=== PATIENT | female | born 1990 | race Caucasian/White ===

== ENCOUNTER 2017-04-10 06:36 | Inpatient (IN) | payer MEDICAID, SELFPAY ==
[2017-04-10] MEDS: Lactated Ringers 1,000 ML 50 ML IV ×2 (07:07→08:08)
[2017-04-10 07:28] VITALS: BMI 26.6
[2017-04-10 07:36] LABS: Absolute Lymphocyte Count 0.42 X10^3/ul (0.83-4.51); Absolute Neutrophil Count 20.7 X10^3/uL (2.0-7.7); Basophil# 0.02 X10^3/uL; Basophil% 0.1 % (0-1); Hematocrit 39.9 % (37-47); Hemoglobin 13.6 g/dl (12.0-15.0); Lymphocyte # 0.42 X10^3/ul (4.0); Lymphocyte % 1.9 % (19-41); Mean Corp Hgb Conc 34.1 g/gl (32-36); Mean Corpuscular Hgb 31.6 pg (27.0-32.0); Mean Corpuscular Volume 92.6 fL (81-99); Mean Platelet Vol. 10.9 fl (6.2-12.0); Monocyte# 0.76 X10^3/uL; Monocyte% 3.5 % (0-10); Neutrophil # 20.72 X10^3/uL (2.7-7.7); Neutrophil % 94.1 % (47-70); Platelet Count 219 K/mm3 (150-450); RBC Distribution Width CV 13.4 % (11.6-14.6); RBC Distribution Width SD 45.2 fl (35.1-43.9); Red Blood Count 4.31 M/mm3 (4.2-5.4)
[2017-04-10 07:37] LABS: POSITIVE COUNT NO; POSITIVE DIFFERENTIAL YES; POSITIVE MORPHOLOGY NO
[2017-04-10 07:38] LABS: Differential Indicated SCAN CRITERIA MET
[2017-04-10] MEDS: Nalbuphine 10 MG/ML Ampul IV (07:42)
[2017-04-10 07:43] LABS: ROM Internal Control Test YES-OK TO RESULT pt. (Internal QC)
[2017-04-10 07:45] LABS: ROM Patient Test POSITIVE (Negative)
[2017-04-10] MEDS: Ondansetron 4 MG/2 ML Vial IV (10:00)
[2017-04-10] MEDS: Oxytocin 30 units/NS 500 ml 30 UNITS/500 ML IV.SOLN 334 UNITS IV (12:36)
--- NOTE | 2017-04-10 13:00 | PCM.OB.VAG ---
(1) Arrested active labor, delivered, current hospitalization Status: Acute (2) Vacuum extraction, delivered, current hospitalization Status: Acute Vaginal Delivery Maternal Presentation: Active Labor 39w5d ega in active labor with SROM Amniotic Membrane Rupture Type: Spontaneous at home Rupture of Membrane time: 0300 Amniotic Fluid Description: Clear Final JB: 04/12/17 Final JB Source: US <20 weeks Gestational age: 39 Weeks and 5 Days Date of Procedure: 04/10/17 Pre-Operative Diagnosis: labor Post-Operative Diagnosis: same Surgery/ Procedure Performed: Vacuum Assisted Vaginal Delivery Anesthesiologist: Esau Acevedo Type of Anesthesia: Epidural Description of Procedure: Progressed to FD over 5 hours. During pushing efforts had repetitive decels into the 70s with eventual recovery to baseline by the next contraction. Pushed every other contraction for 30 minutes then decision was made to assist with vacuum device to speed delivery due to decels. The device was placed taking care to avoid the fontanelles. Over two contractions and two pulling efforts the baby's head was delivered to the perineum. Baby's head was delivered easily followed by the body. The nose and nares were suctioned. Delayed cord clamping was employed. The placenta was delivered intact with an eccentrically located 3VC. The uterus contracted well. Inspection revealed a right periurethral first degree tear and an very small posterior vaginal first degree tear. These were repaired with 3-0 Rapide suture. Presentation: KATHERINE Placental Delivery Description: Spontaneous Placenta Disposition: [facility] Percentage of Placenta Abruption: 0 Cord Vessel Description: 3 Vessels Cord Entanglement: None Drain: Rosario to straight drain Estimated Blood Loss: 300cc A gender: Male (1 minute): 9 (5 minute): 9 Episiotomy Description: None Laceration: Midline, Periurethral Extnsion/lac - right, Vaginal Extension/lac, 1st degree Medications given after delivery: IV Pitocin Complications: None
--- NOTE | 2017-04-10 13:08 | DCINST_ITS ---
Discharge Diet: No Restrictions Discharge Activity: Return to Normal Activity, May Drive, May Shower Return to work on:: 06/02/17 May shower in (days): 0 May resume sexual activity in: 6 weeks Call your doctor if your incision/area has: Sudden Increased Bleeding, Increased Pain/ Swelling, Foul Smelling Discharge Call your doctor if you observe: Fever of 101 or Higher, Inability to urinate, Inability to have a bowel movement, Using more than one pad per hour, Shortness of breath, Chest pain, Calf discomfort, Uncontrolled pain Cleanse incision/area with: Soap & Water Additional Instructions: If you experience any of the following, contact your healthcare provider. * Bleeding that soaks a pad every hour for 2 hours * Fever 100.4 or higher * Unrelieved incision or abdominal pain * Swelling, redness, discharge or bleeding from your incision or episiotomy site * Your incision begins to separate * Problems urinating (including inability to urinate or burning while urinating) . * Visual changes * Severe headache * Flu-like symptoms * Pain or redness in one of both of your breasts * Pain, warmth, tenderness or swelling in your legs, especially the calf area * Frequent nausea and vomiting * Symptoms of depression or anxiety If you experience any of the following, call 911 or go to the nearest Emergency Room. * Chest pain * Problems breathing * Seizure activity * Partial or complete paralysis of a body part, slurred speech, weakness or drooping of the face, or a sudden inability to walk or hold your balance Allergies/Adverse Reactions: Allergies Penicillins Allergy (Verified 04/10/17 07:18) Hives Medications to take at Discharge Vits [Prenatabs FA ] 1 tab PO DAILY 04/09/17 Acetaminophen [Tylenol Extra Strength] 500 mg PO Q8H 04/10/17 Ibuprofen [Motrin] 800 mg PO TID PRN PRN #30 tab 04/10/17 The following prescriptions were given: Ibuprofen [Motrin] 800 mg PO TID PRN PRN #30 tab PRN Reason: pain or cramping Please Follow Up With: Ayaan Herrera MD When: 6 weeks Proposed Discharge Date: 04/12/17
[2017-04-10] MEDS: Oxytocin 30 units/NS 500 ml 30 UNITS/500 ML IV.SOLN 167 UNITS IV (13:10)
[2017-04-10] MEDS: Ibuprofen 600 MG Tablet PO ×2 (13:57→21:55)
[2017-04-10 15:40] VITALS: BP 104/64; PULSE 92; RESP 16; TEMP 37.1
--- NOTE | 2017-04-10 16:31 | NURSING ---
1545 torres cath dc'ed; pericare done with fresh ice pack and tucks
[2017-04-10 20:00] VITALS: BP 115/67; PULSE 93; RESP 18; TEMP 37.4; O2SAT 99
[2017-04-10] MEDS: Senna/Docusate Sodium 1 Tablet PO (21:56)
[2017-04-11] VITALS (8 sets, daily range): BP systolic 100–118; BP diastolic 59–77; PULSE 68–110; RESP 16–18; TEMP 36.6–39.9; O2SAT 97–100
[2017-04-11] MEDS: oxyCODONE 5 MG Tablet PO ×4 (00:43→15:47)
[2017-04-11] MEDS: Ibuprofen 600 MG Tablet PO ×3 (04:43→20:17)
[2017-04-11 05:08] LABS: Hematocrit 32.8 % (37-47); Mean Corp Hgb Conc 33.5 g/gl (32-36); Mean Corpuscular Hgb 31.4 pg (27.0-32.0); Mean Corpuscular Volume 93.7 fL (81-99); Mean Platelet Vol. 10.4 fl (6.2-12.0); Platelet Count 185 K/mm3 (150-450); RBC Distribution Width CV 13.4 % (11.6-14.6); White Blood Count 15.7 K/mm3 (4.4-11.0)
[2017-04-11 05:09] LABS: Scan Indicated on CBC? Y/N NO
--- NOTE | 2017-04-11 08:11 | PCM.PN.OB ---
Patient Problems: Active and Suspected Problems Arrested active labor, delivered, current hospitalization (Acute) Vacuum extraction, delivered, current hospitalization (Acute) Subjective: Doing well. No specific complaints. Bleeding light. Objective: Afeb VSS Hgb stable - Physical Exam General: Alert, Oriented x3, Cooperative, No apparent distress Lungs: Clear to auscultation, Normal air movement Cardiovascular: Regular rate, Regular Rhythm Abdomen: Soft, Non Tender, Non-Distended, - - Fundus firm nontender Extremities: No edema Skin: No rashes Neurological: Neuro grossly intact Psych/Mental Status: Normal Affect Comment: Lochia light Vital Signs Temp Pulse Resp BP Pulse Ox 98.2 F 85 18 107/77 97 04/11/17 04:22 04/11/17 04:22 04/11/17 04:22 04/11/17 04:22 04/11/17 04:22 Oxygen Delivery Method Room Air Weight: 155 lb 10.342 oz Body Mass Index (BMI) 26.6 Intake and Output for Last 24 Hours 04/09/17 04/10/17 04/11/17 23:59 23:59 23:59 Intake Total 2984 / 2984 Output Total 650 / 650 Balance 2334 / 2334 Laboratory Tests Past 24 Hrs 04/10/17 04/10/17 04/11/17 07:07 07:07 04:50 WBC 15.7 H RBC 3.50 L Hgb 11.0 L Hct 32.8 L MCV 93.7 MCH 31.4 MCHC 33.5 RDW 13.4 RDW Differential 44.0 H Plt Count 185 MPV 10.4 Total Counted Not Reportable Blood Type A NEGATIVE Antibody Screen NEGATIVE Assessment/Plan Active and Suspected Problems Arrested active labor, delivered, current hospitalization (Acute) Vacuum extraction, delivered, current hospitalization (Acute) Doing well on PP day#1. Continue routine PP care.
[2017-04-11] MEDS: Senna/Docusate Sodium 1 Tablet PO (11:27)
[2017-04-11] MEDS: Prenatal Vits Tablet 1 TABLET PO (15:47)
[2017-04-11] MEDS: Acetaminophen 500 MG Tablet 1000 MG PO (17:57)
[2017-04-11] MEDS: Oseltamivir Phosphate 75 MG Capsule PO (21:56)
[2017-04-12 01:31] VITALS: BP 108/69; PULSE 90; RESP 18; TEMP 37
[2017-04-12] MEDS: Ibuprofen 600 MG Tablet PO (06:59)
[2017-04-12] MEDS: Senna/Docusate Sodium 1 Tablet PO (07:00)
[2017-04-12 07:45] VITALS: BP 117/79; PULSE 101; RESP 18; TEMP 37.9; O2SAT 95
[2017-04-12] MEDS: Acetaminophen 500 MG Tablet 1000 MG PO (08:56)
[2017-04-12] MEDS: Oseltamivir Phosphate 75 MG Capsule PO (08:57)
[2017-04-12] MEDS: Prenatal Vits Tablet 1 TABLET PO (08:57)
--- NOTE | 2017-04-12 10:59 | PCM.PN.OB ---
Patient Problems: Active and Suspected Problems Arrested active labor, delivered, current hospitalization (Acute) Vacuum extraction, delivered, current hospitalization (Acute) Subjective: Patient without complaints. Denies symptoms from positive influenza rapid test. Started on Tamiflu last p.m. Remains afebrile. Ready to go home. Not breast-feeding. - Physical Exam Vital Signs Afebrile, vital signs stable and present. Temp Pulse Resp BP Pulse Ox 100.3 F H 101 H 18 117/79 95 04/12/17 07:45 04/12/17 07:45 04/12/17 07:45 04/12/17 07:45 04/12/17 07:45 Oxygen Delivery Method Room Air Weight: 155 lb 10.342 oz Body Mass Index (BMI) 26.6 Intake and Output for Last 24 Hours 04/10/17 04/11/17 04/12/17 23:59 23:59 23:59 Intake Total 2984 / 2984 Output Total 650 / 650 Balance 2334 / 2334 Microbiology Past 72 Hours 04/11/17 18:16 Influenza Types A,B Direct FA (FADY) - Final Mucosa - Nose Influenzae A Assessment/Plan Active and Suspected Problems Arrested active labor, delivered, current hospitalization (Acute) Vacuum extraction, delivered, current hospitalization (Acute) Doing well. Will release to home with Tamiflu. To call with worsening flu symptoms. Follow-up in office in 6 weeks.
[2017-04-12 14:13] VITALS: BP 103/67; PULSE 79; RESP 16; TEMP 36.8; O2SAT 100
== END 2017-04-12 14:15 | disposition home or self-care (01) | DRG 372 ==
PROVIDERS: Admitting Provider Obstetrics & Gynecology; Visit Provider Obstetrics & Gynecology
DX: O76 Abnormality in fetal heart rate and rhythm complicating labor and delivery (principal); O90.89 Other complications of the puerperium, not elsewhere classified; O71.4 Obstetric high vaginal laceration alone; F17.210 Nicotine dependence, cigarettes, uncomplicated; O46.93 Antepartum hemorrhage, unspecified, third trimester; O62.1 Secondary uterine inertia; O71.82 Other specified trauma to perineum and vulva; O99.334 Smoking (tobacco) complicating childbirth; Z3A.39 39 weeks gestation of pregnancy; Z37.0 Single live birth; J11.1 Influenza due to unidentified influenza virus with other respiratory manifestations
CPT/HCPCS: 59025; 59050; 84112; 85025; 85027; 86850; 86900; 87804; 99218; J7120; G0378; J2405

== ENCOUNTER → 2017-09-09 10:50 | Outpatient (CLI) | payer MEDICAID, SELFPAY ==
--- NOTE | 2017-09-09 10:50 | DT_ITS ---
This patient was seen during an EMR downtime September 08, 2017 - September 15, 2017. This patient may have a combination of paper and electronic documentation or all paper documentation. All documentation is viewable within the e-chart portion of [facility] for each patient visit.
[2017-09-23 15:44] LABS: HPV Reflexed? NOT INDICATED
== END ==
PROVIDERS: Visit Provider Obstetrics & Gynecology
DX: Z12.4 Encounter for screening for malignant neoplasm of cervix (principal); Z12.72 Encounter for screening for malignant neoplasm of vagina
CPT/HCPCS: 88175; G0145

== ENCOUNTER 2018-01-10 08:48 | Observation (INO) | payer MEDICAID, SELFPAY ==
[2018-01-10 08:49] VITALS: BP 128/70; PULSE 86; RESP 16; TEMP 36.8; O2SAT 99; BMI 25.1
--- NOTE | 2018-01-10 09:12 | ED.VISSUMM ---
- ER Visit Summary Date of Service: 01/10/18 Chief Complaint: Nausea and vomiting History of Present Illness: The patient is a 27 F 3 days history of nausea and vomiting. No hematemesis. Too many to count. Worse with smell. Positive home yesterday. Last menstrual period was December 25. , [address] Herrera. No urine symptoms. No vaginal bleeding or abnormal discharge. Mild abdominal cramping due to vomiting. No diarrhea. Tobacco history. Denies any alcohol or illicit drug use. No fever, chills, sweats. Physical Examination: General: Alert and oriented ?3, no acute distress HEENT: Normocephalic, atraumatic. Mild dry mucosa membranes Neck: supple, nontender. Cardiovascular: Regular rate and rhythm, no murmurs Respiratory: Normal breath sounds, symmetric, no distress Abdomen: Soft, nontender, nondistended, negative McBurney's or Quintana's. Extremities: Nontender, no edema, pulses intact ?4 Neuro: no focal neurological deficits. Test Results: BMP potassium 3.5. Creatinine 0.85. UA leukocytes 100, ketones 150, WBCs 5-10, bacteria 2+. Urine culture pending. HCG 48,000. Pelvic ultrasound 6 weeks 4-day intrauterine gestation heart tones 115, small subchorionic hemorrhage. Emergency Department Course and Treatment: Patient mild dry mucosa membranes 3 days of vomiting. Order for aggressive fluids, Phenergan was ordered. Initially improved, labs were stable, hCG was 4800. With abdominal cramping, I did send for ultrasound. During the time recurrent nausea and vomiting is given Reglan additional Phenergan. Results of ultrasound notes for 6 weeks 4-day gestation small subchorionic hemorrhage heart tones 115. She denies any vaginal bleeding. Reevaluation after ultrasound, states she still nauseated. 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 Herrera, will admit for observations for bowel rest and fluid hydration. Discussed urine findings with out symptoms with cultures in the lab and pending. Will hold antibiotics at this time. Treatment Plan: [] Disposition: Admission Impression: 1. Hyperemesis gravidarum 2. First trimester This note was generated with [employer] software. It may contain incorrect words, spelling, and punctuation that were not noted in review of the chart prior to signing ED Disposition - Plan for ED Patient: Disposition: Acute Care [facility] Chief Complaint: Nausea/Vomiting Diagnosis: Hyperemesis gravidarum, First trimester Referrals: NOT,DEFINED [NON-STAFF] -
[2018-01-10] MEDS: proMETHazine 25 MG/ML Syringe 6.25 MG IV ×2 (09:17→11:46)
[2018-01-10] MEDS: 0.9% Normal Saline 1,000 ML 1000 ML IV (09:18)
[2018-01-10 09:38] LABS: Anion Gap 8 (5-15); BUN 11 mg/dL (7-18); BUN/Creat Ratio 13.6 RATIO (10-20); Calcium,Total 9.2 mg/dL (8.5-10.1); Chloride 100 mmol/L (98-107); Creatinine, Serum 0.81 mg/dL (0.55-1.02); EST Glomerular Filtration Rate 89 mL/min (>60); Est Glom Filt Rate - Afr Amer 108 mL/min (>60); Estimated Creatinine Clearance 85.54 ml/min; Glucose 122 mg/dL (74-106); Potassium 3.5 mmol/L (3.5-5.1); Sodium Level 135 mmol/L (136-145)
--- NOTE | 2018-01-10 10:14 | US_ITS ---
STUDY: FIRST TRIMESTER OBSTETRICAL ULTRASOUND REASON FOR EXAM: Female, 27 years old. Nausea and vomiting for 3 days. Headache and mid abdominal pain. . LMP: Approximately 12/25/2017. GA (LMP) 2 week 2 day with JB 10/01/2018. TECHNIQUE: Transvaginal PRIOR ULTRASOUND: None. FINDINGS: There is a single live intrauterine gestation with cardiac rate 115 bpm. Morphologically normal gestational sac with mean sac diameter 1.93 cm correlating with 6 week 6 day gestation. 3.5 mm-year-old sac present. It is too early for assessment of placental development or amniotic fluid index. The crown-rump length is 0.42 cm correlating with 6 week 1 day gestation. AUA 6 week 4 day, JB (AUA) 09/01/2018. The uterus measures 7.0 x 6.8 x 4.3 cm with normal myometrial echotexture, retroverted position. The cervix is closed. Small subchorionic lucency measuring about 9 x 7 x 4 mm is suspicious for a small subchorionic hemorrhage. The right ovary measures 4.2 x 3.6 x 2.6 cm, normal echotexture, appropriate Doppler vascular flow, small physiologic follicles and a dominant 2.5 cm follicle likely representing the corpus luteum cyst of . There is no right adnexal mass, or suspicious cyst. Minimal right adnexal fluid. Left ovary measures 3.0 x 1.6 x 1.7 cm with normal echotexture, small physiologic follicles and normal Doppler vascular flow. There is no left adnexal mass, suspicious cyst or free fluid. Minimal cul-de-sac free fluid. US/Transvaginal w/Preg US IMPRESSION: Suspected tiny subchronic hemorrhage. Single live intrauterine gestation, measurements consistent with 6 week 4 day gestation. Electronically Signed: Vito Mendoza, at 12:14 EDT Tel , Service support ,
[2018-01-10 10:19] LABS: Color, Urine Yellow (Yellow); Glucose, Dipstick Normal (Normal); Leukocyte Esterase-Dipstick 100 /ul (Negative); Nitrite-Dipstick Negative (Negative); Occult Blood-Urine Negative /ul (Negative); Protein-Dipstick 100 mg/dl (Negative); Specific Gravity, Urine 1.025 (1.002-1.030); Urine Clarity Sl. Cloudy (Clear); Urine Urobilinogen 8 mg/dl (Normal)
[2018-01-10] MEDS: 0.9% Normal Saline 1,000 ML 250 ML IV (10:20)
[2018-01-10 10:21] LABS: Ketone-Dipstick 150 mg/dl (Negative); Urine Bilirubin Dipstick 1 mg/dL (Negative)
[2018-01-10 10:26] LABS: Bacteria 2+ /hpf (None Seen); Mucous, Urine 2+ /hpf (<or=2+); Red Blood Cells-Urine 0-5 SEEN /hpf (0-5); Squamous Epithelial Cells - UA 0-5 SEEN /hpf (5-10); White Blood Cells 5-10 SEEN /hpf (0-5)
[2018-01-10] MEDS: Metoclopramide 10 MG/2 ML Vial 5 MG IV (10:40)
[2018-01-10 11:37] VITALS: BP 101/60; PULSE 80; RESP 18; O2SAT 97
--- NOTE | 2018-01-10 12:51 | NURSING ---
HYPERMESIS GRAVIDARUM 1ST TRMESTER PREG SEALS 302
[2018-01-10 13:04] VITALS: BMI 25.6
[2018-01-10 13:18] VITALS: BP 122/81; PULSE 84; RESP 16; TEMP 37.1; O2SAT 98
[2018-01-10] MEDS: Lactated Ringers 1,000 ML 150 ML IV ×2 (14:43→20:26)
[2018-01-10] MEDS: Ondansetron 4 MG/2 ML Vial IV ×2 (14:49→20:19)
[2018-01-10 14:51] VITALS: BP 119/88; PULSE 70; RESP 18; TEMP 36.7; O2SAT 100
[2018-01-10] MEDS: proMETHazine 25 MG/ML Syringe 12.5 MG IV ×2 (16:35→21:51)
--- NOTE | 2018-01-10 20:17 | NURSING ---
Spoke with Dr. Soto regarding pts c/o severe nausea and not due for any meds. Order recieved,Ok to give Zofran now.
--- NOTE | 2018-01-10 21:34 | NURSING ---
Spoke with Dr. Herrera and ok to give phenergan early, does not want to add Reglan at this time. Also states ok for pt to shower.
[2018-01-10 21:35] VITALS: BP 122/80; PULSE 54; RESP 16; TEMP 36.9; O2SAT 100
[2018-01-11 00:08] LABS: Bacteria 0 SEEN /hpf (None Seen); Color, Urine Yellow (Yellow); Glucose, Dipstick Normal (Normal); Ketone-Dipstick 50 mg/dl (Negative); Leukocyte Esterase-Dipstick 25 /ul (Negative); Mucous, Urine 0 SEEN /hpf (<or=2+); Nitrite-Dipstick Negative (Negative); Occult Blood-Urine 150 /ul (Negative); Protein-Dipstick Negative (Negative); Specific Gravity, Urine 1.015 (1.002-1.030); Urine Bilirubin Dipstick Negative (Negative); Urine Clarity Clear (Clear); Urine Urobilinogen 4 mg/dl (Normal)
[2018-01-11 00:20] LABS: Red Blood Cells-Urine 5-10 SEEN /hpf (0-5); Squamous Epithelial Cells - UA 5-10 SEEN /hpf (5-10); White Blood Cells 5-10 SEEN /hpf (0-5)
[2018-01-11 02:18] VITALS: BP 127/81; PULSE 76; RESP 18; TEMP 37.1; O2SAT 97
[2018-01-11] MEDS: Ondansetron 4 MG/2 ML Vial IV ×3 (02:20→18:27)
[2018-01-11] MEDS: Lactated Ringers 1,000 ML 150 ML IV ×2 (02:25→08:17)
[2018-01-11] MEDS: 0.9% NaCl Peripheral Flush Adult/Peds IV ×4 (05:45→17:28)
[2018-01-11] MEDS: proMETHazine 25 MG/ML Syringe 12.5 MG IV ×3 (05:46→17:27)
[2018-01-11 06:46] LABS: Absolute Lymphocyte Count 1.07 X10^3/ul (0.83-4.51); Absolute Neutrophil Count 9.8 X10^3/uL (2.0-7.7); Basophil# 0.02 X10^3/uL; Basophil% 0.2 % (0-1); Eosinophil# 0.01 X10^3/uL; Eosinophils% 0.1 % (0-5); Hematocrit 33.8 % (37-47); Hemoglobin 11.7 g/dl (12.0-15.0); Lymphocyte # 1.07 X10^3/ul (4.0); Mean Corp Hgb Conc 34.6 g/gl (32-36); Mean Corpuscular Hgb 31.5 pg (27.0-32.0); Mean Corpuscular Volume 90.9 fL (81-99); Mean Platelet Vol. 10.5 fl (6.2-12.0); Monocyte# 1.03 X10^3/uL; Monocyte% 8.6 % (0-10); Neutrophil # 9.79 X10^3/uL (2.7-7.7); Neutrophil % 81.8 % (47-70); Platelet Count 150 K/mm3 (150-450); RBC Distribution Width CV 13.5 % (11.6-14.6); RBC Distribution Width SD 43.8 fl (35.1-43.9); Red Blood Count 3.72 M/mm3 (4.2-5.4)
[2018-01-11 06:58] LABS: POSITIVE COUNT NO; POSITIVE DIFFERENTIAL NO; POSITIVE MORPHOLOGY NO
[2018-01-11 07:11] LABS: Anion Gap 8 (5-15); BUN 6 mg/dL (7-18); BUN/Creat Ratio 10.5 RATIO (10-20); Calcium,Total 8.4 mg/dL (8.5-10.1); Chloride 104 mmol/L (98-107); Creatinine, Serum 0.57 mg/dL (0.55-1.02); EST Glomerular Filtration Rate 133 mL/min (>60); Est Glom Filt Rate - Afr Amer 161 mL/min (>60); Estimated Creatinine Clearance 121.55 ml/min; Glucose 95 mg/dL (74-106); Potassium 3.8 mmol/L (3.5-5.1); Sodium Level 137 mmol/L (136-145)
--- NOTE | 2018-01-11 08:30 | PCM.HP.STD ---
Problem List (1) Hyperemesis gravidarum Status: Chronic (2) First trimester Status: Acute History of Present Illness Date of Admission: 01/10/18 Chief Complaint: Nausea and vomitting The patient is a 27 year old F [ with LMP in December with nausea and vomiting and inability to tolerate any PO over the past 2 days. 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 Denies: Anorexia, Chills, Fever, Night Sweats Cardiovascular: Denies: Chest Pain, Chest Pressure, Edema, Light Headedness Respiratory: Denies: Shortness of Breath Gastrointestinal: Reports: Nausea, Vomiting. Denies: Abdominal Pain, Constipation, Diarrhea, Hematemesis Genitourinary: Denies: Dysuria, Frequency, Hematuria Psychiatric: Denies: Anxiety, Depression Hematologic/ Lymphatic: Denies: Anemia VTE Information - Inpt Only VTE Present on Admission: No VTE Mechan Device Prophylaxis: None VTE Pharm Prophylaxis ordered?: No Reason prophylaxis not ordered:: Treatment Not Indicated Patient Problems: Active and Suspected Problems First trimester (Acute) Subjective: Some continued nausea but feels better than yesterday. Objective: Afeb VSS - Physical Exam General: Alert, Oriented x3, Cooperative, No apparent distress Lungs: Clear to auscultation, Normal air movement Cardiovascular: Regular rate, Regular Rhythm Abdomen: Soft, Non Tender, Non-Distended Extremities: No edema Skin: No rashes Neurological: Neuro grossly intact Psych/Mental Status: Normal Affect Comment: No vaginal bleeding. Vital Signs Temp Pulse Resp BP Pulse Ox 98.7 F 76 18 127/81 H 97 01/11/18 02:18 01/11/18 02:18 01/11/18 02:18 01/11/18 02:18 01/11/18 02:18 Oxygen Delivery Method Room Air Weight: 144 lb 9.972 oz Body Mass Index (BMI) 25.6 Intake and Output for Last 24 Hours 10/08/2201/10/18 01/11/18 23:59 23:59 23:59 Intake Total 120 / 120 2386 / 2386 Output Total 100 / 100 Balance 2385 / 2386 Laboratory Tests Past 24 Hrs 01/10/18 01/10/18 01/10/18 09:11 09:11 10:14 WBC RBC Hgb Hct MCV MCH MCHC RDW RDW Differential Plt Count MPV Immature Gran % (Auto) Neut % (Auto) Lymph % (Auto) [place] % (Auto) Eos % (Auto) Baso % (Auto) Absolute Neuts (auto) Absolute Lymphs (auto) Total Counted Sodium 135 L Potassium 3.5 Chloride 100 Carbon Dioxide 27.0 Anion Gap 8 BUN 11 Creatinine 0.81 Estim Creat Clear Calc 85.54 Est GFR (MDRD) Af Amer 108 Est GFR (MDRD) Non-Af 89 BUN/Creatinine Ratio 13.6 Glucose 122 H Calcium 9.2 HCG, Quant 44628 H Urine Color Yellow Urine Clarity Sl. Cloudy Urine pH 6.0 Ur Specific [place] 1.025 Urine Protein 100 H Urine Glucose (UA) Normal Urine Ketones 150 H Urine Occult Blood Negative Urine Nitrite Negative Urine Bilirubin 1 H Urine Urobilinogen 8 H Ur Leukocyte Esterase 100 H Urine RBC 0-5 SEEN Urine WBC 5-10 SEEN Ur Squamous Epith Cells 0-5 SEEN Urine Bacteria 2+ Urine Mucus 2+ 01/10/18 01/11/18 01/11/18 21:55 06:09 06:09 WBC 12.0 H RBC 3.72 L Hgb 11.7 L Hct 33.8 L MCV 90.9 MCH 31.5 MCHC 34.6 RDW 13.5 RDW Differential 43.8 Plt Count 150 MPV 10.5 Immature Gran % (Auto) 0.300 Neut % (Auto) 81.8 H Lymph % (Auto) 9.0 L [place] % (Auto) 8.6 Eos % (Auto) 0.1 Baso % (Auto) 0.2 Absolute Neuts (auto) 9.8 H Absolute Lymphs (auto) 1.07 Total Counted Not Reportable Sodium 137 Potassium 3.8 Chloride 104 Carbon Dioxide 25.0 Anion Gap 8 BUN 6 L Creatinine 0.57 Estim Creat Clear Calc 121.55 Est GFR (MDRD) Af Amer 161 Est GFR (MDRD) Non-Af 133 BUN/Creatinine Ratio 10.5 Glucose 95 Calcium 8.4 L HCG, Quant Urine Color Yellow Urine Clarity Clear Urine pH 8.0 Ur Specific [place] 1.015 Urine Protein Negative Urine Glucose (UA) Normal Urine Ketones 50 H Urine Occult Blood 150 H Urine Nitrite Negative Urine Bilirubin Negative Urine Urobilinogen 4 H Ur Leukocyte Esterase 25 H Urine RBC 5-10 SEEN Urine WBC 5-10 SEEN Ur Squamous Epith Cells 5-10 SEEN Urine Bacteria 0 SEEN Urine Mucus 0 SEEN Assessment/Plan All Active Problems First trimester (Acute) Vacuum extraction, delivered, current hospitalization (Acute) Arrested active labor, delivered, current hospitalization (Acute) Hyperemesis gravidum. Early first trimester . Labs reveal better hydration today but still with some ketones. Electrolytes normal. Will give trial of PO today. If able to tolerate will discharge home with PO antiemetics.
[2018-01-11 08:32] VITALS: BP 130/83; PULSE 62; RESP 16; TEMP 36.8; O2SAT 99
--- NOTE | 2018-01-11 08:35 | HP.PCM_ITS ---
Problem List (1) Hyperemesis gravidarum Status: Chronic (2) First trimester Status: Acute History of Present Illness Date of Admission: 01/10/18 Chief Complaint: Nausea and vomitting The patient is a 27 year old F [ with LMP in December with nausea and vomiting and inability to tolerate any PO over the past 2 days. 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 Denies: Anorexia, Chills, Fever, Night Sweats Cardiovascular: Denies: Chest Pain, Chest Pressure, Edema, Light Headedness Respiratory: Denies: Shortness of Breath Gastrointestinal: Reports: Nausea, Vomiting. Denies: Abdominal Pain, Constipation, Diarrhea, Hematemesis Genitourinary: Denies: Dysuria, Frequency, Hematuria Psychiatric: Denies: Anxiety, Depression Hematologic/ Lymphatic: Denies: Anemia VTE Information - Inpt Only VTE Present on Admission: No VTE Mechan Device Prophylaxis: None VTE Pharm Prophylaxis ordered?: No Reason prophylaxis not ordered:: Treatment Not Indicated Patient Problems: Active and Suspected Problems First trimester (Acute) Subjective: Some continued nausea but feels better than yesterday. Objective: Afeb VSS - Physical Exam General: Alert, Oriented x3, Cooperative, No apparent distress Lungs: Clear to auscultation, Normal air movement Cardiovascular: Regular rate, Regular Rhythm Abdomen: Soft, Non Tender, Non-Distended Extremities: No edema Skin: No rashes Neurological: Neuro grossly intact Psych/Mental Status: Normal Affect Comment: No vaginal bleeding. Vital Signs Temp Pulse Resp BP Pulse Ox 98.7 F 76 18 127/81 H 97 01/11/18 02:18 01/11/18 02:18 01/11/18 02:18 01/11/18 02:18 01/11/18 02:18 Oxygen Delivery Method Room Air Weight: 144 lb 9.972 oz Body Mass Index (BMI) 25.6 Intake and Output for Last 24 Hours 10/08/2201/10/18 01/11/18 23:59 23:59 23:59 Intake Total 120 / 120 2386 / 2386 Output Total 100 / 100 Balance 2385 / 2386 Laboratory Tests Past 24 Hrs 01/10/18 01/10/18 01/10/18 09:11 09:11 10:14 WBC RBC Hgb Hct MCV MCH MCHC RDW RDW Differential Plt Count MPV Immature Gran % (Auto) Neut % (Auto) Lymph % (Auto) [place] % (Auto) Eos % (Auto) Baso % (Auto) Absolute Neuts (auto) Absolute Lymphs (auto) Total Counted Sodium 135 L Potassium 3.5 Chloride 100 Carbon Dioxide 27.0 Anion Gap 8 BUN 11 Creatinine 0.81 Estim Creat Clear Calc 85.54 Est GFR (MDRD) Af Amer 108 Est GFR (MDRD) Non-Af 89 BUN/Creatinine Ratio 13.6 Glucose 122 H Calcium 9.2 HCG, Quant 25927 H Urine Color Yellow Urine Clarity Sl. Cloudy Urine pH 6.0 Ur Specific [place] 1.025 Urine Protein 100 H Urine Glucose (UA) Normal Urine Ketones 150 H Urine Occult Blood Negative Urine Nitrite Negative Urine Bilirubin 1 H Urine Urobilinogen 8 H Ur Leukocyte Esterase 100 H Urine RBC 0-5 SEEN Urine WBC 5-10 SEEN Ur Squamous Epith Cells 0-5 SEEN Urine Bacteria 2+ Urine Mucus 2+ 01/10/18 01/11/18 01/11/18 21:55 06:09 06:09 WBC 12.0 H RBC 3.72 L Hgb 11.7 L Hct 33.8 L MCV 90.9 MCH 31.5 MCHC 34.6 RDW 13.5 RDW Differential 43.8 Plt Count 150 MPV 10.5 Immature Gran % (Auto) 0.300 Neut % (Auto) 81.8 H Lymph % (Auto) 9.0 L [place] % (Auto) 8.6 Eos % (Auto) 0.1 Baso % (Auto) 0.2 Absolute Neuts (auto) 9.8 H Absolute Lymphs (auto) 1.07 Total Counted Not Reportable Sodium 137 Potassium 3.8 Chloride 104 Carbon Dioxide 25.0 Anion Gap 8 BUN 6 L Creatinine 0.57 Estim Creat Clear Calc 121.55 Est GFR (MDRD) Af Amer 161 Est GFR (MDRD) Non-Af 133 BUN/Creatinine Ratio 10.5 Glucose 95 Calcium 8.4 L HCG, Quant Urine Color Yellow Urine Clarity Clear Urine pH 8.0 Ur Specific [place] 1.015 Urine Protein Negative Urine Glucose (UA) Normal Urine Ketones 50 H Urine Occult Blood 150 H Urine Nitrite Negative Urine Bilirubin Negative Urine Urobilinogen 4 H Ur Leukocyte Esterase 25 H Urine RBC 5-10 SEEN Urine WBC 5-10 SEEN Ur Squamous Epith Cells 5-10 SEEN Urine Bacteria 0 SEEN Urine Mucus 0 SEEN Assessment/Plan All Active Problems First trimester (Acute) Vacuum extraction, delivered, current hospitalization (Acute) Arrested active labor, delivered, current hospitalization (Acute) Hyperemesis gravidum. Early first trimester . Labs reveal better hydration today but still with some ketones. Electrolytes normal. Will give trial of PO today. If able to tolerate will discharge home with PO antiemetics.
--- NOTE | 2018-01-11 08:41 | NURSING ---
Pt sleeping but awakened by Dr. Herrera. This nurse in room to perform Vital Signs and Assessment. Pt very irritable while this nurse performing Assessment. I just want to go to sleep. This nurse informed her that it would only take a few minutes. Offered pt some fresh liquids for her, pt refused.
--- NOTE | 2018-01-11 08:44 | DCINST_ITS ---
- Discharge Diagnoses Current Active Problems: Current Active and Chronic Problems Hyperemesis gravidarum (Chronic) First trimester (Acute) You will use the following diet at home:: No restrictions - bland Your food should be the consistency of: Regular Discharge Activity: Return to Normal Activity, May Drive, May Shower, May Take a Tub Bath Return to work on:: 01/14/18 May shower in (days): 0 May resume sexual activity in: No Restrictions Call your doctor if you observe: Fever of 101 or Higher, Inability to urinate, Inability to have a bowel movement, Using more than one pad per hour, Shortness of breath, Chest pain, Calf discomfort, Uncontrolled pain, - - Inability to tolerate any fluids for more than 24 hours Allergies/Adverse Reactions: Allergies Penicillins Allergy (Verified 01/10/18 08:50) Hives Medications to take at Discharge Ondansetron [Zofran Odt] 4 mg PO Q6H PRN PRN #30 tab.rapdis 01/11/18 proMETHazine tablet [Phenergan tablet] 25 mg PO Q6H PRN PRN #30 tab 01/11/18 The following prescriptions were given: Ondansetron [Zofran Odt] 4 mg PO Q6H PRN PRN #30 tab.rapdis PRN Reason: nausea or vomiting proMETHazine tablet [Phenergan tablet] 25 mg PO Q6H PRN PRN #30 tab PRN Reason: nausea or vomiting Primary Care Physician: NOT,DEFINED [NON-STAFF] - Test Results: Test results from this visit will be discussed in further detail at your follow- up appointment, if applicable. Please Follow Up With: Ayaan Herrera MD When: within one to two weeks Proposed Discharge Date: 01/11/18
[2018-01-11] MEDS: Dextrose 5%-Lactated Ringers 1,000 ML 250 ML IV ×2 (10:00→14:48)
[2018-01-11 15:02] VITALS: BP 130/78; PULSE 53; RESP 18; TEMP 36.9; O2SAT 98
--- NOTE | 2018-01-11 17:30 | NURSING ---
Pt has not ordered dinner yet. Encouraged. I want to go home. This nurse was going to get discharge paper work and pt stated, Can you wait until my mom gets back because I don't know whats going on. pt not motivated to do anything besides sleep.
== END 2018-01-11 18:41 | disposition home or self-care (01) ==
LOC: ED 12:33 → MS3 12:43
PROVIDERS: Admitting Provider Obstetrics & Gynecology; Emergency Provider Emergency Medicine; Visit Provider Obstetrics & Gynecology
DX: O21.0 Mild hyperemesis gravidarum (principal); Z3A.01 Less than 8 weeks gestation of pregnancy; O99.334 Smoking (tobacco) complicating childbirth; F17.200 Nicotine dependence, unspecified, uncomplicated
CPT/HCPCS: 36415; 76817; 80048; 81001; 84702; 85025; 87086; 87088; 96361; 96374; 96375; 96376; 99218; 99282; 99406; J7030; J7120; A4216; G0378; J2405; J3490

== ENCOUNTER → 2018-02-03 13:35 | Outpatient (CLI) | payer MEDICAID, SELFPAY ==
[2018-02-03 18:11] LABS: Chlamydia Trachomatis by PCR Negative (Negative); Neisserai gonorrhoeae by PCR Negative (Negative); Probe Check PASS; Sample Adequacy Control PASS; Specimen Processing Control PASS
== END ==
PROVIDERS: Visit Provider Obstetrics & Gynecology
DX: Z11.3 Encounter for screening for infections with a predominantly sexual mode of transmission (principal)
CPT/HCPCS: 87491; 87591

== ENCOUNTER → 2018-02-19 10:34 | Outpatient (CLI) | payer MEDICAID, SELFPAY ==
[2018-02-19 10:45] LABS: Absolute Lymphocyte Count 1.77 X10^3/ul (0.83-4.51); Absolute Neutrophil Count 9.3 X10^3/uL (2.0-7.7); Basophil# 0.03 X10^3/uL; Basophil% 0.2 % (0-1); Color, Urine Yellow (Yellow); Eosinophil# 0.14 X10^3/uL; Eosinophils% 1.1 % (0-5); Glucose, Dipstick Normal (Normal); Hematocrit 41.2 % (37-47); Hemoglobin 14.2 g/dl (12.0-15.0); Ketone-Dipstick Negative (Negative); Leukocyte Esterase-Dipstick Negative /ul (Negative); Lymphocyte # 1.77 X10^3/ul (4.0); Lymphocyte % 14.5 % (19-41); Mean Corp Hgb Conc 34.5 g/gl (32-36); Mean Corpuscular Hgb 31.5 pg (27.0-32.0); Mean Corpuscular Volume 91.4 fL (81-99); Monocyte# 0.92 X10^3/uL; Monocyte% 7.5 % (0-10); Neutrophil # 9.29 X10^3/uL (2.7-7.7); Neutrophil % 76.2 % (47-70); Nitrite-Dipstick Negative (Negative); Occult Blood-Urine Negative /ul (Negative); Platelet Count 218 K/mm3 (150-450); Protein-Dipstick Negative (Negative); RBC Distribution Width CV 13.4 % (11.6-14.6); RBC Distribution Width SD 44.3 fl (35.1-43.9); Red Blood Count 4.51 M/mm3 (4.2-5.4); Urine Bilirubin Dipstick Negative (Negative); Urine Clarity Clear (Clear); Urine Urobilinogen Normal (Normal); White Blood Count 12.2 K/mm3 (4.4-11.0)
[2018-02-19 10:46] LABS: POSITIVE COUNT NO; POSITIVE DIFFERENTIAL NO; POSITIVE MORPHOLOGY NO
[2018-02-19 10:49] LABS: COTININE Drug Screen Positive (<200 ng/mL)
[2018-02-19 10:59] LABS: Amphetamine Urine VISTA NEGATIVE (<1000 ng/mL); Barbiturate Urine VISTA NEGATIVE (< 200 ng/mL); Benzodiazepine Urine VISTA NEGATIVE (< 200 ng/mL); Cocaine Urine VISTA NEGATIVE (< 300 ng/mL); Ecstacy Urine VISTA NEGATIVE (< 500 ng/mL); Methadone Urine VISTA NEGATIVE (< 300 ng/mL); PCP Urine VISTA NEGATIVE (< 25 ng/mL); THC Urine VISTA POSITIVE (< 50 ng/mL); Vista UDS pH Range 7
[2018-02-19 11:19] LABS: Thyroid Stim Hormone (TSH) 1.41 uIU/mL (0.358-3.74)
[2018-02-19 12:00] LABS: HIV - WCH Non-Reactive (Nonreactive); Rubella IgG 70.3 IU/mL
[2018-02-20 01:35] LABS: Prenatal RPR NONREACTIVE (NONREACTIVE)
[2018-02-22 11:29] LABS: HEPATITIS B SURFACE AG Negative (Negative); Hep C Antibodies <0.1 s/co ratio (0.0-0.9)
== END ==
PROVIDERS: Visit Provider Obstetrics & Gynecology
DX: Z34.81 Encounter for supervision of other normal pregnancy, first trimester (principal)
CPT/HCPCS: 36415; 80307; 81002; 84443; 85025; 86703; 86762; 86803; 87340

== ENCOUNTER → 2018-06-25 10:31 | Outpatient (CLI) | payer MEDICAID, SELFPAY ==
[2018-06-25 13:52] LABS: Mean Corp Hgb Conc 33.3 g/gl (32-36); Mean Corpuscular Hgb 32.1 pg (27.0-32.0); Mean Corpuscular Volume 96.3 fL (81-99); Mean Platelet Vol. 10.2 fl (6.2-12.0); Platelet Count 213 K/mm3 (150-450); RBC Distribution Width CV 12.4 % (11.6-14.6); RBC Distribution Width SD 41.9 fl (35.1-43.9); Red Blood Count 3.74 M/mm3 (4.2-5.4); White Blood Count 12.6 K/mm3 (4.4-11.0)
[2018-06-25 13:53] LABS: Scan Indicated on CBC? Y/N NO
[2018-06-25 13:55] LABS: Glucose Challenge Gest 1H 50g 84 mg/dL (70-140)
== END ==
PROVIDERS: Visit Provider Obstetrics & Gynecology
DX: Z34.83 Encounter for supervision of other normal pregnancy, third trimester (principal)
CPT/HCPCS: 82950; 85027; 86850

== ENCOUNTER → 2018-08-13 | Outpatient (CLI) | payer MEDICAID, SELFPAY ==
[2018-01-10 13:04] VITALS: BMI 25.6
== END | disposition home or self-care (01) ==
LOC: LABSPEC 13:55
PROVIDERS: Visit Provider Obstetrics & Gynecology
DX: Z36.85 Encounter for antenatal screening for Streptococcus B (principal)
CPT/HCPCS: 87077; 87081; 87186

== ENCOUNTER 2018-08-27 12:40 | Outpatient (CLI) | payer MEDICAID, SELFPAY ==
[2018-08-27 12:59] VITALS: BMI 28.2
--- NOTE | 2018-09-08 12:24 | OB.TRI.NOTE ---
History of Present Illness Date of Service: 08/27/18 Was patient seen by the physician?: No Reason For Visit: R/O LABOR Date of Service: 08/27/18 Final JB: 09/06/18 Final JB Source: US <20 weeks Gestational age: 40 Weeks and 2 Days Allergies Penicillins Allergy (Verified 08/31/18 03:57) Hives Physical Exam General: Alert, Oriented x3, Cooperative, No apparent distress Cardiovascular: Regular rate, Regular Rhythm Lungs: Clear to auscultation, Normal air movement Abdomen: Soft, Non Tender, Non-Distended, Gravid, Appropriate for Gestational Age Extremities:: No edema Neurological: Neuro grossly intact 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 NST reassuring.
== END 2018-08-27 15:35 | disposition home or self-care (01) ==
LOC: WPOUT 12:57 → WP 12:59
PROVIDERS: Referring Provider Obstetrics & Gynecology; Visit Provider Obstetrics & Gynecology
DX: Z34.93 Encounter for supervision of normal pregnancy, unspecified, third trimester (principal); Z3A.40 40 weeks gestation of pregnancy
CPT/HCPCS: 59025; 59050; 99218; G0378

== ENCOUNTER 2018-08-31 03:39 | Inpatient (IN) | payer MEDICAID, SELFPAY ==
[2018-08-31] MEDS: Lactated Ringers 1,000 ML 50 ML IV ×3 (03:50→08:03)
[2018-08-31 03:56] VITALS: BMI 29.0
[2018-08-31 04:11] LABS: Absolute Lymphocyte Count 2.89 X10^3/ul (0.83-4.51); Basophil# 0.04 X10^3/uL; Basophil% 0.2 % (0-1); Eosinophil# 0.23 X10^3/uL; Eosinophils% 1.4 % (0-5); Hematocrit 34.8 % (37-47); Lymphocyte # 2.89 X10^3/ul (4.0); Lymphocyte % 17.6 % (19-41); Mean Corp Hgb Conc 34.5 g/gl (32-36); Mean Corpuscular Hgb 31.9 pg (27.0-32.0); Mean Corpuscular Volume 92.6 fL (81-99); Mean Platelet Vol. 10.3 fl (6.2-12.0); Monocyte# 1.23 X10^3/uL; Monocyte% 7.5 % (0-10); Neutrophil # 11.95 X10^3/uL (2.7-7.7); Neutrophil % 72.8 % (47-70); Platelet Count 258 K/mm3 (150-450); RBC Distribution Width CV 12.9 % (11.6-14.6); Red Blood Count 3.76 M/mm3 (4.2-5.4); White Blood Count 16.4 K/mm3 (4.4-11.0)
[2018-08-31 04:20] LABS: POSITIVE COUNT NO; POSITIVE DIFFERENTIAL NO; POSITIVE MORPHOLOGY NO
--- NOTE | 2018-08-31 04:23 | PCM.HPOB.BLA ---
History and Physical Date of Admission: 08/31/18 OB HISTORY AND PHYSICAL EXAMINATION History of this : 28 yo female Ab0 with EDC 09/06/2018 by 11 weeks 4 days Ultrasound, presents to Labor and Delivery with painful UCs. @ 39 1/7 wk EGA care remarkable for - 1.) PCN allergy 2.) Hx of UTI's and kidney infection 3.) Short interval between pregnancies 4.) Smokes 1/2 ppd, ATQ, 5.) Tox screen at [facility] appt positive for marijuana Pertinent Past Medical History: None. Allergies: Penicillin Medications: During - Vitamin tablet; Phenergan Tab 25 mg; Zofran 8 mg tablet; axgvwalycl-yffquftaominp-qyxpguwo 50 mg-325 mg-40 mg tablet; hydrocortisone 2.5 % lotion Review of Systems: contractions PHYSICAL EXAMINATION General Appearence: 28 yo female in no acute distress Vital Signs: AF, VSS Heart: RRR without rubs or gallops Lungs: CTA x 2 Breasts: deferred Abdomen: gravid Cervix: Initially 4.5/70/-2, 1 hr later then to 6/70/-1 Presentation: cephalic Station: Fetus: single Size: AGA Movement: present Heart: present 120s with accels to 150s Avg variability. Irregular UCs noted.q 3-8 mins ? 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 39 1/7 wk EGA Labor. Admit. request epidural. GBS positive Begin clindamycin for GBS prophylaxis. See Progress Notes for Changes: Physician's Signature: Date:
--- NOTE | 2018-08-31 04:32 | HP.PCM_ITS ---
History and Physical Date of Admission: 08/31/18 OB HISTORY AND PHYSICAL EXAMINATION History of this : 28 yo female Ab0 with EDC 09/06/2018 by 11 weeks 4 days Ultrasound, presents to Labor and Delivery with painful UCs. @ 39 1/7 wk EGA care remarkable for - 1.) PCN allergy 2.) Hx of UTI's and kidney infection 3.) Short interval between pregnancies 4.) Smokes 1/2 ppd, ATQ, 5.) Tox screen at [facility] appt positive for marijuana Pertinent Past Medical History: None. Allergies: Penicillin Medications: During - Vitamin tablet; Phenergan Tab 25 mg; Zofran 8 mg tablet; jdyouelicl-meeivwriqbanz-ykktilaa 50 mg-325 mg-40 mg tablet; hydrocortisone 2.5 % lotion Review of Systems: contractions PHYSICAL EXAMINATION General Appearence: 28 yo female in no acute distress Vital Signs: AF, VSS Heart: RRR without rubs or gallops Lungs: CTA x 2 Breasts: deferred Abdomen: gravid Cervix: Initially 4.5/70/-2, 1 hr later then to 6/70/-1 Presentation: cephalic Station: Fetus: single Size: AGA Movement: present Heart: present 120s with accels to 150s Avg variability. Irregular UCs noted.q 3-8 mins ? last picker Impression /Plan: Intrauterine . 39 1/7 wk EGA Labor. Admit. request epidural. GBS p ositive Begin clindamycin for GBS prophylaxis. See Progress Notes for Changes: Physician's Signature: Date:
[2018-08-31] MEDS: fentaNYL-bupivacaine (epidural) 100 ML BAG EPIDURAL (05:15)
--- NOTE | 2018-08-31 06:57 | PCM.PN.BLA ---
Progress Note LABOR PROGRESS NOTE Epidural in place AVSS EFM: 120-130s avg variability. Accels UCs q 6-8 mins CX: last check at approx 5:30 am 6/75/-2 A/P: 39 1/7 wk labor. GBS positive Abx given. Continue observation of labor. Comfortable w/ epidural. Plan AROM after 4 hr abx window. Anticipate
[2018-08-31 07:05] LABS: Amphetamine Urine VISTA NEGATIVE (<1000 ng/mL); Barbiturate Urine VISTA POSITIVE (< 200 ng/mL); Benzodiazepine Urine VISTA NEGATIVE (< 200 ng/mL); Cocaine Urine VISTA NEGATIVE (< 300 ng/mL); Ecstacy Urine VISTA NEGATIVE (< 500 ng/mL); Methadone Urine VISTA NEGATIVE (< 300 ng/mL); PCP Urine VISTA NEGATIVE (< 25 ng/mL); THC Urine VISTA POSITIVE (< 50 ng/mL); Vista UDS pH Range 7
[2018-08-31] MEDS: Ondansetron 4 MG/2 ML Vial IV (08:53)
[2018-08-31] MEDS: Oxytocin 30 units/NS 500 ml 30 UNITS/500 ML IV.SOLN 334 UNITS IV (09:10)
--- NOTE | 2018-08-31 09:15 | PCM.DCVAG ---
Discharge Diet: No Restrictions Discharge Activity: May Shower, May Take a Tub Bath May resume sexual activity in: 4-6 weeks Additional Activity Instructions:: Nothing in the vagina for 4-6 weeks. You may return to work/school in 6 weeks. Additional Instructions: If you experience any of the following, contact your healthcare provider. Bleeding that soaks a pad every hour for 2 hours Fever 100.4 or higher Unrelieved abdominal pain Problems urinating (including inability to urinate or burning while urinating). Visual changes Severe headache Flu-like symptoms Pain or redness in one of both of your breasts Pain, warmth, tenderness or swelling in your legs, especially the calf area Frequent nausea and vomiting Symptoms of depression or anxiety If you experience any of the following, call 911 or go to the nearest Emergency Room. Chest pain Problems breathing Seizure activity Partial or complete paralysis of a body part, slurred speech, weakness or drooping of the face, or a sudden inability to walk or hold your balance Allergies/Adverse Reactions: Allergies Penicillins Allergy (Verified 08/31/18 03:57) Hives Medications to take at Discharge proMETHazine tablet [Phenergan tablet] 25 mg PO Q6H PRN PRN #30 tab 01/11/18 Vits [Prenatabs FA ] 1 tab PO DAILY 08/27/18 Butalb/Acetaminophen/Caffeine [Esgic 50-325-40 mg Tablet] PRN 08/31/18 Please Follow Up With: Ayaan Herrera MD - [phone] When: Call to make an appointment with your doctor in 6 weeks. Test Results: Test results from this visit will be discussed in further detail at your follow-up appointment, if applicable. Proposed Discharge Date: 09/02/18
--- NOTE | 2018-08-31 09:17 | DCINST_ITS ---
Discharge Diet: No Restrictions Discharge Activity: May Shower, May Take a Tub Bath May resume sexual activity in: 4-6 weeks Additional Activity Instructions:: Nothing in the vagina for 4-6 weeks. You may return to work/school in 6 weeks. Additional Instructions: If you experience any of the following, contact your healthcare provider. * Bleeding that soaks a pad every hour for 2 hours * Fever 100.4 or higher * Unrelieved abdominal pain * Problems urinating (including inability to urinate or burning while urinating). * Visual changes * Severe headache * Flu-like symptoms * Pain or redness in one of both of your breasts * Pain, warmth, tenderness or swelling in your legs, especially the calf area * Frequent nausea and vomiting * Symptoms of depression or anxiety If you experience any of the following, call 911 or go to the nearest Emergency Room. * Chest pain * Problems breathing * Seizure activity * Partial or complete paralysis of a body part, slurred speech, weakness or drooping of the face, or a sudden inability to walk or hold your balance Allergies/Adverse Reactions: Allergies Penicillins Allergy (Verified 08/31/18 03:57) Hives Medications to take at Discharge proMETHazine tablet [Phenergan tablet] 25 mg PO Q6H PRN PRN #30 tab 01/11/18 Vits [Prenatabs FA ] 1 tab PO DAILY 08/27/18 Butalb/Acetaminophen/Caffeine [Esgic 50-325-40 mg Tablet] PRN 08/31/18 Please Follow Up With: Ayaan Herrera MD - [phone] When: Call to make an appointment with your doctor in 6 weeks. Test Results: Test results from this visit will be discussed in further detail at your follow- up appointment, if applicable. Proposed Discharge Date: 09/02/18
[2018-08-31] MEDS: Oxytocin 30 units/NS 500 ml 30 UNITS/500 ML IV.SOLN 167 UNITS IV (09:40)
[2018-08-31] MEDS: Ibuprofen 600 MG Tablet PO ×2 (09:59→18:50)
[2018-08-31] MEDS: 0.9% Saline Lock 10 ML Syringe IV (11:08)
--- NOTE | 2018-08-31 13:35 | PCM.OPRPT ---
Vaginal Delivery Maternal Presentation: Active Labor 39 1/7 wk early labor IBOW Amniotic Membrane Rupture Type: Artificial Amniotic Fluid Description: Lightly stained meconium Final JB: 09/06/18 Gestational age: 39 Weeks and 1 Days Date of Procedure: 08/31/18 Pre-Operative Diagnosis: 39 1/7 wk labor Post-Operative Diagnosis: same Surgery/ Procedure Performed: Spontaneous Vaginal Delivery Type of Anesthesia: Epidural Description of Procedure: of a davidson viable female over intact perineum. Head delivered KAREN. OP and nares bulb suctioned on perineum. No nuchal cord. Shoulders delivered easily. to maternal abdomen after delivery. Cord clamped times two and cut as cord shorter. Routine cord blood for typing collected. Ap 9/10 PP exam No lacerations. Abrasion at R anterior labia, hemostatic. no repair required Placenta delivered by spont expulsion, expression 3V cord, normal appearing and intact with trailing membranes. EBL 250 cc pt and tolerated delivery well. to recovery, stable condition Ray Luis and needle counts correct times two. Presentation: Vertex, KAREN Placental Delivery Description: Spontaneous, Expressed Cord Vessel Description: 3 Vessels Cord Entanglement: None Drain: Rosario to straight drain Estimated Blood Loss: 250 Infant A gender: Female (1 minute): 9 (5 minute): 10 Episiotomy Description: None Laceration: None - abrasion R anterior labia Medications given after delivery: IV Pitocin Complications: None
[2018-08-31 15:05] VITALS: BP 129/70; PULSE 94; RESP 18; TEMP 36.5; O2SAT 99
[2018-08-31] MEDS: Prenatal Vits Tablet 1 TABLET PO (15:11)
[2018-08-31] MEDS: Acetaminophen 500 MG Tablet 1000 MG PO (17:31)
[2018-08-31 19:24] VITALS: BP 117/64; PULSE 78; RESP 18; TEMP 36.2
[2018-08-31 23:34] VITALS: BP 111/69; PULSE 74; RESP 18; TEMP 36.3
[2018-09-01] MEDS: Acetaminophen 500 MG Tablet 1000 MG PO (01:50)
[2018-09-01 04:06] VITALS: BP 115/75; PULSE 64; RESP 18; TEMP 36.3
[2018-09-01] MEDS: Ibuprofen 600 MG Tablet PO (04:16)
[2018-09-01 04:51] LABS: Hematocrit 32.3 % (37-47); Hemoglobin 11.1 g/dl (12.0-15.0); Mean Corp Hgb Conc 34.4 g/gl (32-36); Mean Corpuscular Volume 93.1 fL (81-99); Platelet Count 233 K/mm3 (150-450); RBC Distribution Width CV 13.4 % (11.6-14.6); RBC Distribution Width SD 45.1 fl (35.1-43.9); Red Blood Count 3.47 M/mm3 (4.2-5.4); Scan Indicated on CBC? Y/N NO; White Blood Count 16.8 K/mm3 (4.4-11.0)
--- NOTE | 2018-09-01 06:39 | PCM.PN.OB ---
Subjective: PPD#1 Doing well. - Physical Exam General: Alert, Oriented x3, Cooperative, No apparent distress HEENT: Atraumatic Neck: Supple Abdomen: Soft - fundus firm NT , inferior to umbilicus Neurological: Cranial nerves II-XII grossly intact Vital Signs Temp Pulse Resp BP Pulse Ox 97.4 F L 64 18 115/75 99 09/01/18 04:06 09/01/18 04:06 09/01/18 04:06 09/01/18 04:06 08/31/18 15:05 Oxygen Delivery Method Room Air Weight: 74.446 kg Body Mass Index (BMI) 29.0 Intake and Output for Last 24 Hours 08/30/18 08/31/18 09/01/18 23:59 23:59 23:59 Output Total 2650 / 2650 Balance -2650 / -2650 Laboratory Tests Past 24 Hrs 08/31/18 09/01/18 06:40 04:20 WBC 16.8 H RBC 3.47 L Hgb 11.1 L Hct 32.3 L MCV 93.1 MCH 32.0 MCHC 34.4 RDW 13.4 RDW Differential 45.1 H Plt Count 233 MPV 10.0 Urine Opiates Screen NEGATIVE Urine Methadone Screen NEGATIVE Ur Barbiturates Screen POSITIVE H Ur Phencyclidine Scrn NEGATIVE Ur Amphetamines Screen NEGATIVE U Methamphetamin-MDMA NEGATIVE U Benzodiazepines Scrn NEGATIVE Urine Cocaine Screen NEGATIVE U Cannabinoids Screen POSITIVE H Ur Drug Screen Comment Medical Necessity - Tobacco Use Smoking Status: Light Smoker (<10/day) Assessment/Plan PPD#1 Stable pp. Continue routine care. Baby A Neg. Mom A NEG No RhoGAM
[2018-09-01 08:00] VITALS: BP 126/74; PULSE 80; RESP 18; TEMP 36.1
--- NOTE | 2018-09-01 15:00 | CASEMGMT ---
Social Work Assessment Labor and Delivery Unit Date of Referral: 08/31/2018 Time of Referral: 1812 ; 1750 Referred By: Dr. Radha Le (senior sales operations analyst); Dr. Vargas Date of Intervention: 09/01/2018 Time of Intervention: 1500 Reason for Referral: maternal substance abuse History obtained from: Mother of baby (MOB) Jenelle Colvin and medical records. Father of baby (FOB) Ayaan Young present for part of conversation. Household composition: MOB, FOB, and older child (also named Ayaan) live with FOB's mother. MOB reports home situation is safe and adequate. Patient's parent/guardian status: MOB and FOB are 28 years old and have been in a relationship for almost 12 years. Now have 2 children together: Ayaan Young (born on 04-10-2017) and Monica Young (born ). During private discussion with MOB, MOB denies any form of abuse, control, or intimidation by FOB. Medical History: MOB is G2, P1 to 2 after delivery of Monica. care started at 11 weeks gestation. Baby born with Apgars of 9 and 10 at 1 and 5 minutes of life. Birthweight is 2696 grams. Educational Status: MOB with high school education. No reports of any learning or comprehension issues. 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 FOB works fulltime for a [employer]. This is a new job for the last month, but had worked at previous employer for 8 years. Supplies: MOB and FOB report to have all needed baby supplies including bassinet for sleeping, and car seat. MOB reports to have adequate supplies for both children at home. Monica is being bottle fed and MOB reports to have formula. Childcare/Caregiver(s): MOB is primary caregiver. Transportation: No reported issues. Programs/Agencies Involved: S for medical. No WIC and MOB is not interested at this time. Plans to use [facility] [place] [facility] office for pediatric follow up. Children Services/Legal Issues: MOB reports after Ayaan was born in 2018 [facility] did follow the family for about two weeks, related to baby being exposed to marijuana in utero. MOB denies any other children service involvement since that one time. No reports of any legal issues for this family. Behavioral Health Issues: Mental Health History: MOB denies any mood or anxiety issues, denies any depression and denies any history of suicidal thoughts/plans/attempts. MOB reports may have had some mood fluctuations at the beginning of the , but denies actual depression. MOB reports to feel good emotionally at this time. Substance Use History: MOB denies use/abuse of alcohol or other illicit drugs besides marijuana. MOB reports last use of marijuana was 3 months ago. MOB reports was prescribed Fioricet by Dr. Herrera for headaches during this and did use this as needed. MOB unclear as to when last use of this was. Drug Screens: MOB with positive drug screen for marijuana on 02.09.2018 and then at delivery on 08.31.2018 for marijuana and barbiturates. The Fioricet would contribute to Fioricet prescription and this tag writer was able to verify with OBGYN office that MOB was prescribed this medication in February of 2018. Family/Social Stressors: No stressors identified or reported. MOB does have closely spaced pregnancies. MOB reports to be happy about the new baby however, and is happy to have a boy and a girl. Support Systems: MOB reports FOB, FOB's mother, and MOB's mother as supports. MOB reports will have help at home going. ASSESSMENT: Met with MOB and FOB together in room. Both cooperative with social work visit. FOB quiet overall but did respond when this tag writer prompted FOB's engagement. FOB also left the room when 7th grade social studies teacher asked. MOB held good eye contact, mood and affect appropriate. MOB reports to feel to have needed supplies for baby, report to have adequate support, and denies any needs or concerns with home going. MOB reports to love the new baby and is looking forward to going home. Educated MOB and FOB to depression and anxiety, risks and symptoms to look for. Also addressed that father's can develope mood issues. Privately discussedw with MOB use of marijuana in . MOB vague and guarded in conversation about this, stating last use was 3 months ago though MOB was positive at delivery. Educated MOB that baby was positive for barbiturates and that meconium is pending. Educated MOB that children services has to be called, similarly to when Ayaan was born in 2018. MOB had no comment or feedback about this and appeared to accept information without issues. MOB does reports that used the marijuana to help with headaches. Safe Plan of Care for related to substance use: MOB reports would not use marijuana in front of the children. Addressed whether MOB would care for the children after using and MOB indicated belief that use of marijuana would not impact MOB's care for the children. PLAN: MOB and baby to home at discharge. [facility] will be contacted regarding substance exposed . MOB provided with [facility] resources list that does include options for mental health and substance use treatment if needed or desired in the future. Information on shaken baby prevention, safe sleeping and HMG given. depression packet also given. No other services requested or indicated. -APPLE Jiménez, FACILITY OPERATIONS MANAGER
[2018-09-01 16:05] VITALS: BP 114/79; PULSE 82; RESP 16; TEMP 36.1
--- NOTE | 2018-09-02 09:45 | CASEMGMT ---
Social Work Labor and delivery Unit Called [facility] ([facility]) and spoke with Shira Swain in the intake department ([phone]). Referral given due to substance exposed infant with maternal drug screens positive at beginning and end of for marijuana and then barbiturates at the end of as well. Reported MOB's confirmed prescription for Fioricet. Reported baby's drug screen at delivery. Also reported MOB's report of last use of marijuana 3 months ago. Shira will write up referral but uncertain whether case will be opened at this time. [facility] requests call back when baby's meconium drug screen results are back. -CARLOS Jiménez, SKIP HOIST ENGINEER
--- NOTE | 2018-09-06 14:20 | NURSING ---
No answer on follow up phone call. Voice mail left.
== END 2018-09-01 16:45 | disposition home or self-care (01) | DRG 560 ==
LOC: WPOUT 03:40
PROVIDERS: Admitting Provider Obstetrics & Gynecology; Visit Provider Obstetrics & Gynecology
DX: O77.0 Labor and delivery complicated by meconium in amniotic fluid (principal); Z3A.39 39 weeks gestation of pregnancy; Z37.0 Single live birth; F17.210 Nicotine dependence, cigarettes, uncomplicated; O99.334 Smoking (tobacco) complicating childbirth; O99.824 Streptococcus B carrier state complicating childbirth; O71.82 Other specified trauma to perineum and vulva
CPT/HCPCS: 59025; 59050; 80307; 85025; 85027; 86850; 86900; 99218; J7120; A4216; G0378; J2405

== ENCOUNTER 2019-03-21 19:44 | Emergency (ER) | payer MEDICAID, SELFPAY ==
[2019-03-21 19:45] VITALS: BP 113/78; PULSE 85; RESP 15; TEMP 36.7; O2SAT 99; BMI 21.2
--- NOTE | 2019-03-21 19:49 | RAD_ITS ---
HISTORY: PT REPORTS SHE FELL DOWN A COUPLE OF PORCH STEPS TONIGHT AND IS C/O LEFT TOP OF FOOT PAIN. COMPARISON: None FINDINGS: # of images incl. paperwork: 3 XR Foot Min 3 Views : No fracture or subluxation. No osseous or soft tissue abnormality. The joint spaces are well-maintained. No radiopaque foreign body is seen. RAD/Foot min 3 Views IMPRESSION: Normal left foot. at 2006 Reported and signed by: Dino Lawson MD Electronically Signed: Dino Lawson MD at 20:05 EST Tel , Service support ,
--- NOTE | 2019-03-21 19:54 | ED.VIS.GEN ---
History of Present Illness Chief Complaint: Lower Extremity Injury Detail of Chief Complaint: Foot injury Informant: Patient Onset: Today Context: Sudden Onset Timing: Waxes and wanes Current Severity: Moderate Maximum Severity: Moderate Narrative: Patient presents with left foot pain after falling down some steps earlier this afternoon. She states she also hit her left elbow but it is not been bothering her this evening. She believes her pain across the top of her left foot with difficulty bearing weight. She denies pain at the ankle, knee, or hip. She has been taking Tylenol without improvement. Past Medical History - Allergies and Home Meds Allergies/Adverse Reactions: Allergies Penicillins Allergy (Verified 03/21/19 19:49) Hives Past Medical History: None Surgical History: no surgical history Lives: With Family Smoking Status: Light Smoker (<10/day) Review of Systems General: Denies: Chills, Fever Eyes: Denies: Visual changes - bilaterally ENT: Denies: Bilateral ear pain Cardiovascular: Denies: Chest pain Respiratory: Denies: Dyspnea, Cough Gastrointestinal: Denies: Abdominal pain, Nausea, Vomiting, Diarrhea Genitourinary: Denies: Dysuria Musculoskeletal: Reports: Extremity Pain Skin: Denies: Rash Neurological: Reports: Numbness - Intermittent numbness over left hunter. Denies: Headache Hematologic: Denies: Easy bruising, Easy bleeding Allergy: Denies: Uticaria Physical Exam Vital Signs/Narrative: Vital Signs Temp Pulse Resp BP Pulse Ox 03/21/19 19:45 98.1 F 85 15 113/78 99 Inital Vital Signs reviewed: Yes General: Well nourished, Well developed Head: Normocephalic ENT: Moist mucous membranes Neck: Supple Cardiovascular: Regular rate, Regular rhythm Respiratory: No distress, CTA bilaterally Abdomen: Soft, Nontender, Nondistended Extremities: - - Tenderness over the dorsal aspect of the left foot. Early ecchymosis is noted. Minimal edema. Strong pulses are noted. She can wiggle toes. There is no pain at the ankle, knee, or hip. Neurological: Alert, Oriented x3 Psychological: Normal affect Diagnostic/Tx/Re-eval Impressions Foot X-Ray 03/21/19 19:49 IMPRESSION: Normal left foot. at 2006 Reported and signed by: Dino Lawson MD Electronically Signed: Dino Lawson MD at 20:05 EST Tel , Service support , 03/21/19 19:49 Foot min 3 Views [RAD] Stat - Medical Decision Making She was given naproxen for pain. Test results were discussed with her. Vega wrap is applied to her foot. She will be given crutches and may weight-bear as tolerated. ED Disposition - Plan for ED Patient: Disposition: Home or Assisted Living Diagnosis: Foot sprain Instructions: Sprain Foot Prescriptions: Naproxen [Naprosyn] 500 mg PO BID PRN #14 tab PRN Reason: Pain Score 4-10/10 Transmission Status: Pending to [facility] Referrals: Jose Russell MD [STAFF PHYSICIAN] - As Needed
[2019-03-21] MEDS: Naproxen 500 MG Tablet PO (19:57)
== END 2019-03-21 20:28 | disposition home or self-care (01) ==
PROVIDERS: Emergency Provider Emergency Medicine
DX: S93.602A Unspecified sprain of left foot, initial encounter (principal); R20.0 Anesthesia of skin; W10.9XXA Fall (on) (from) unspecified stairs and steps, initial encounter; Y93.9 Activity, unspecified; Y92.9 Unspecified place or not applicable; Y99.9 Unspecified external cause status; Z88.0 Allergy status to penicillin; F17.200 Nicotine dependence, unspecified, uncomplicated
CPT/HCPCS: 73630; 99283